=== PATIENT | female | born 1955 | race Caucasian/White ===

== ENCOUNTER 2016-08-17 06:26 | Day surgery (SDC) | payer BC ==
[~2016-08-17] VITALS: Ht 162.6 cm; Wt 55.9 kg
[2016-08-17] VITALS (15 sets, daily range): BP systolic 90–149; BP diastolic 52–93; PULSE 61–77; TEMP 97.1
[2016-08-17 06:57] LABS: HEMATOCRIT 41.9 % (37.0-47.0); HEMOGLOBIN 13.8 g/dl (12.5-16.0); MEAN CELL VOLUME 96 fl (80.0-100.0); MEAN CORPUSCULAR HEMOGLOBIN 32 pg (27.0-31.0); MEAN CORPUSCULAR HGB CONC 33 g/dl (33.0-37.0); PLATELET COUNT 222 K/mm3 (130-400); RED BLOOD COUNT 4.37 M/mm3 (4.10-5.30); REDCELL DISTRIBUTION WIDTH-CV 12.6 % (11.5-14.5); WHITE BLOOD COUNT 7.6 K/mm3 (4.8-10.8)
[2016-08-17 07:00] LABS: INR 1.1 (0.8-3.0); PROTHROMBIN TIME 11.9 SECONDS (9.7-12.8)
[2016-08-17 07:09] LABS: CALCIUM 8.9 mg/dL (8.4-10.2); CREATININE, serum 0.89 mg/dL (0.52-1.25); POTASSIUM 4.5 mmol/L (3.4-5.0)
[2016-08-17] MEDS ORDERED: ASPIRIN E.C. 8181 MG PO (07:31)
[2016-08-17] MEDS ORDERED: VALIUM 5MG T5 MG/TAB PO (07:33)
[2016-08-17] MEDS ORDERED: NITROSTAT0.4 MG/TAB SL (07:33)
[2016-08-17] MEDS ORDERED: EPA FISH OIL1 SGL PO (10:40)
[2016-08-17] MEDS ORDERED: NORVASC2.5 MG PO (10:40)
== END 2016-08-17 15:06 | disposition home or self-care (01) ==
LOC: COL.CAR 06:26
PROVIDERS: Internal Medicine Cardiovascular Disease
DX: I25.110 Atherosclerotic heart disease of native coronary artery with unstable angina pectoris (principal); K21.9 Gastro-esophageal reflux disease without esophagitis; I10 Essential (primary) hypertension; E78.2 Mixed hyperlipidemia; M19.90 Unspecified osteoarthritis, unspecified site; F17.210 Nicotine dependence, cigarettes, uncomplicated; Z90.49 Acquired absence of other specified parts of digestive tract; Z98.1 Arthrodesis status; Z90.710 Acquired absence of both cervix and uterus; Z90.722 Acquired absence of ovaries, bilateral; Z82.49 Family history of ischemic heart disease and other diseases of the circulatory system
CPT/HCPCS: C1769; C1887; J1644; J2250; J2405; J3010; Q9967

== ENCOUNTER → 2017-11-09 | Outpatient (CLI) | payer BC ==
[~2017-11-09] MED LIST: ASPIRIN E.C. 8181 MG PO; EPA FISH OIL1 SGL PO; NITROSTAT0.4 MG/TAB SL; NORVASC2.5 MG PO; VALIUM 5MG T5 MG/TAB PO
== END ==
LOC: MC.RAD 11:20
DX: Z12.31 Encounter for screening mammogram for malignant neoplasm of breast (principal)

== ENCOUNTER → 2019-07-10 | Outpatient (CLI) | payer BC | LOC: MC.RAD 16:45 | DX: Z12.31 Encounter for screening mammogram for malignant neoplasm of breast (principal) ==